=== PATIENT | female | born 1980 | race African-American/Black ===

== ENCOUNTER 2016-12-18 19:24 | Emergency (ER) | payer BC, OTHER ==
[~2016-12-18] VITALS: Ht 157.5 cm; Wt 127.0 kg
[2016-12-18 20:41] LABS: BASOPHILS % 1.1 % (0.0-2.0); EOSINOPHILS % 1.6 % (0.0-5.0); HEMOGLOBIN. 11.2 g/dL (12.0-16.0); LYMPHOCYTES % 26.9 % (20.0-50.0); MEAN CORPUSCULAR HEMOGLOBIN 27.4 pg (28.0-32.0); MEAN CORPUSCULAR HGB CONC 33.1 g/dL (31.0-37.0); MEAN CORPUSCULAR VOLUME 82.8 fL (81.0-99.0); MEAN PLATELET VOLUME 9.4 fl (7.4-10.4); MONOCYTES % 7.1 % (2.0-8.0); NEUTROPHILS % 63.3 % (40.0-76.0); PLATELET 248 x1000/uL (130-400); RED CELL DISTRIBUTION WIDTH 14.5 % (11.6-14.6); WHITE BLOOD COUNT 6.4 x1000/uL (4.5-11.0)
[2016-12-18 20:42] LABS: CHLORIDE 109 mEq/L (98-107)
[2016-12-18 20:48] LABS: ANION GAP 11; CALCIUM 8.8 mg/dL (8.5-10.1); CARBON DIOXIDE 27 mEq/L (21-32); INDEX HEMOLYSI 1 (1-3); INDEX ICTERIC 1 (1-4); INDEX LIPEMIC 1 (1-3); UREA NITROGEN BLOOD 8 mg/dL (7-21); eGFR > 60 mL/min (>60)
[2016-12-18 20:51] LABS: HCG SCREEN NEGATIVE
[2016-12-18 21:00] VITALS: BP 118/76
== END 2016-12-18 22:35 | disposition home or self-care (01) ==
LOC: ER 19:24
DX: F41.9 Anxiety disorder, unspecified (principal); R07.9 Chest pain, unspecified
CPT/HCPCS: 36415; 71010; 80048; 84703; 85025; 93005; 99285